=== PATIENT | male | born 1955 | race Two or more races ===

== ENCOUNTER 2019-03-17 00:03 | Day surgery (SDC) | payer MEDICARE, MEDICAID ==
[2015-03-06 16:40] VITALS: Ht 177.8 cm; Wt 57.6 kg
[~2019-03-17] VITALS: Ht 177.8 cm; Wt 57.6 kg
[~2019-03-17 00:03] MED LIST: ALB18R INH; CEP500 PO; CLIN300C99 PO; DIA10 PO; DOC100 PO; DOXY-228 PO; DOXY-260 PO; FLU20 PO; IBU800 PO; IBUP-1618 PO; KET10 PO; LOR5 PO; LOR5/325 PO; MULT-820 PO; NALT50TA29 PO; NO MEDS; NO ROUTINE MEDS.; NO RTN MEDS; PANT40TA65 PO; PER PO; RAN150 PO; SUCR1TAB51 PO; THIA100T55 PO; TRA50 PO; TRAM-420 PO; TRAM100T21 PO; TRAZ-133 PO
[2019-03-17] MEDS ORDERED: fentaNYL CITR 100 MCG/2 ML AMP ONE ×3 (10:15→16:34)
[2019-03-17] MEDS ORDERED: DEXAMETHASONE SOD PHOS 10MG/ML ONE (10:18)
[2019-03-17] MEDS ORDERED: LIDOCAINE MPF 1% 5 ML VIAL ONE (10:18)
[2019-03-17] MEDS ORDERED: KETAMINE HCL 200 MG/20 ML MDV ONE (10:18)
[2019-03-17] MEDS ORDERED: ONDANSETRON 4 MG/2 ML VIAL ONE (10:18)
[2019-03-17] MEDS ORDERED: PROPOFOL EMUL(*) 10MG/ML 20 ML 20 ML ONE (10:18)
[2019-03-17] MEDS ORDERED: SUGAMMADEX SOD 200 MG/2 ML SDV ONE (10:19)
[2019-03-17] MEDS: NORMOSOL R SOLN(*) 1000 ML BAG 1,000 ML IV PRN ×2 (11:08→14:33)
[2019-03-17] MEDS ORDERED: LIDOCAINE/SOD BICARB 8.4% SYR ID ONE (11:30)
[2019-03-17] MEDS ORDERED: FAMOTIDINE 20 MG TAB PO ONE (11:30)
[2019-03-17 11:56] VITALS: BP 113/79
[2019-03-17] MEDS ORDERED: CLINDAMYCIN(*) 600 MG/NS 50 ML 50 ML IVPB ONE (12:00)
[2019-03-17] MEDS ORDERED: LEVOFLOXACIN/D5W 750 MG/150 ML 150 ML IVPB ONE (12:00)
[2019-03-17] MEDS ORDERED: BUPIV/EPI 0.25% 1:200,000 50ML INFIL ONE (13:59)
[2019-03-17] MEDS: MIDAZOLAM 2 MG/2 ML VIAL IVP PRN ×2 (14:42→16:40)
[2019-03-17] MEDS ORDERED: KETOROLAC 30 MG/ML VIAL ONE (16:04)
[2019-03-17] MEDS ORDERED: TRAM-420 PO (16:28)
--- NOTE | 2019-03-17 16:31 | Short(Outpt) Discharge Summary ---
Discharge Summary Reason for Hosp/Final Diag: (1) Hernia, inguinal, right Hospital Course & Plan: pt presented for hernia repair. he tolerated the procedure well. he will be discharged home when criteria met. Discharge Instructions Home Meds Active Scripts Tramadol Hcl (TRAMADOL HCL) 50 Mg Tablet, 50 MG PO Q4H PRN for PAIN, #20 TAB Prov:CASSIA NGO 03/17/19 Tramadol Hcl (TRAMADOL HCL) 50 Mg Tablet, 50 MG PO Q6H for PAIN, #20 TAB Prov:CASSIA NGO 03/12/19 Discontinued Scripts Albuterol Sulfate (VENTOLIN HFA) 18 Gm Inh, 2 PUFF INH Q4-6H PRN for SHORTNESS OF BREATH, #1 INH Prov:MIGUEL RODRIGUEZ 08/31/16 Doxycycline Hyclate (DOXYCYCLINE HYCLATE) 100 Mg Tablet.dr, 100 MG PO BID, #14 TAB Prov:MIGUEL RODRIGUEZ 08/31/16 Ketorolac Tromethamine (KETOROLAC TROMETHAMINE) 10 Mg Tab, 10 MG PO Q6H, #20 TAB Prov:MIGUEL RODRIGUEZ 10/31/15 Diet: Regular Activity: No Heavy Lifting Special Instructions: no lifting more than 15 lbs for 3 wks. ok to shower tomorrow. take stool softener while taking pain meds. f/u dr. azucena ngo 2 wks ([phone]) CASSIA NGO March 17, 2019 16:31
--- NOTE | 2019-03-17 16:36 | Post Operative Progress Note ---
Post Operative Progress Note Date: March 17, 2019 Time: 16:31 Surgeon: dr. azucena ngo #[id number] Industrial Cleaning Technician: none Anesthesia: gen, local Pre-Op Diagnosis: right ing hernia Post-Op Diagnosis: same Findings: right ing hernia Procedure(s): robotic right ing hernia repair with mesh Complications: none Estimated Blood Loss: minimal Date OP Note Dictated: March 17, 2019 Time OP Note Dictated: 16:32 CASSIA NGO March 17, 2019 16:36
[2019-03-17 17:15] VITALS: BP 116/78
[2019-03-17 17:45] VITALS: BP 117/76
[2019-03-17 17:47] VITALS: BP 119/82
[2019-03-17] MEDS ORDERED: traMADol 50 MG TAB ONE (17:48)
--- NOTE | 2019-03-17 18:32 | OPERATIVE REPORT 1 ---
EVENT DATE: March 17, 2019 SURGEON: Mark Dewey MD ANESTHESIOLOGIST: Luke Ortiz MD ANESTHESIA: General and local. SUPERVISOR HARVESTING: None. PREOPERATIVE DIAGNOSIS Right inguinal hernia. POSTOPERATIVE DIAGNOSIS Right inguinal hernia. PROCEDURE PERFORMED Robotic right inguinal hernia repair with mesh. FLUIDS IV crystalloid. ESTIMATED BLOOD LOSS Minimal. SPECIMENS None. COMPLICATIONS None. INDICATIONS This is a 63-year-old male with a right inguinal hernia that is painful. On physical exam, patient has a moderate right inguinal hernia. He is stable. Risks and benefits of the procedure were explained, and consent was signed. DESCRIPTION OF PROCEDURE Patient was taken to the operating room and placed in the supine position. General anesthesia was administered per Anesthesia and the patient prepped and draped in the normal sterile fashion. Local analgesia was injected into the dermis below the left costal margin. Optiview technique was used to easily enter the abdomen. Pneumoperitoneum was achieved. There were some adhesions from previous surgery. These were partially taken down bluntly. After injecting local analgesia and under direct vision, an 8 mm supraumbilical port and an 8 mm right upper quadrant port were placed, and the 5 mm left upper quadrant port was exchanged for an 8 mm port. I used LigaSure to take down the adhesions. The robot was then docked. Scissors were used to create the peritoneal flap. This was taken down to Amilcar ligament and below the level of the iliopubic track. The hernia sac was completely reduced. It was an indirect hernia of moderate size. The inferior epigastric vessels and cord structures were protected throughout the procedure. The 15 x 10 right-sided ProGrip was placed and made to lie flat. It covered the entire myopectineal orifice. The peritoneal flap was reapproximated with the running V-Loc absorbable stitch. Hemostasis was assured. Ports were removed under direct vision. Hemostasis was assured. Pneumoperitoneum was relieved. Final port was removed. All skin incisions were closed with 4-0 Monocryl subcuticular stitches. More local analgesia was injected. Appropriate dressings were applied. Patient tolerated the procedure well, and there were no complications. MTDD
== END 2019-03-17 17:15 | disposition home or self-care (01) ==
LOC: OR 00:03
PROVIDERS: ATTEND Surgery
DX: K40.90 Unilateral inguinal hernia, without obstruction or gangrene, not specified as recurrent (principal)
CPT/HCPCS: 49650; A9270; C1781; J1100; J1885; J1956; J2001; J2250; J2405; J2704; J3010; J3490; S2900

== ENCOUNTER → 2019-05-20 | Outpatient (CLI) | payer MEDICARE, MEDICAID ==
[2015-03-06 16:40] VITALS: BMI 20.1
[~2019-05-20] MED LIST changes: +IOPAMIDOL 76% 100 ML INFUS BTL 100 ML ONE
--- NOTE | 2019-05-20 12:50 | RADIOLOGY IMAGING REPORT ---
FACILITY: [facility] - [place] PATIENT NAME: Tee Winter : 1955 MR: [id number] V: [id number] EXAM DATE: ORDERING PHYSICIAN: CASSIA COX TECHNOLOGIST: Location: [facility] Patient: Tee Winter : 1955 Visit/Account:[id number] Date of Sevice: 05/20/2019 CT ABDOMEN PELVIS W/ CON HISTORY: Bilateral groin pain, history of hernia surgery on left groin TECHNIQUE: Following administration of IV contrast contiguous axial images acquired through the abdom en/pelvis. Coronal and sagittal reformatting also performed.Dose Lowering Technique One of the following dose optimization techniques was utilized in the performance of this exam: Autom ated exposure control; adjustment of the mA and/or kV according to the patient's size; or use of an i terative reconstruction technique. Specific details can be referenced in the facility's radiology C T exam operational policy. CONTRAST: 75 mL Isovue-[id number] COMPARISON: February 17, 2009 FINDINGS: Visualized lung bases: Mild bullous disease and minimal scarring versus atelectasis in the left lung base Hepatobiliary: Negative. Spleen: Negative. Adrenals: Negative. Pancreas: Negative. Kidneys ureters or bladder: The kidneys appear grossly unremarkable. The bladder wall appears mildly thickened although could be related to the decompression of the bladder Genitalia: Negative. GI: The appendix is visualized and does not appear inflamed. There is a moderate amount of fecal ma terial throughout colon which can be seen with constipation Vessels/spaces/nodes: There is a 1.2 x 0.8 cm celiac lymph node and a 1.3 x 0.9 cm periportal lymph node and a 1.4 x 0.8 cm portacaval lymph node. These appear stable when compared to the prior study. There are mild vascular calcifications in the abdominal aorta and branch vessels Bones/soft tissues: There appears to been a right inguinal hernia repair with no evidence of a recur rent hernia. There are mild spondylotic changes lumbar spine Additional findings: None pertinent. IMPRESSION: There appears to been a right inguinal hernia repair with no evidence of a recurrent hernia There is a moderate amount of fecal material seen throughout colon which can be seen with constipatio n The bladder wall appears mildly thickened which could be related to decompression of the bladder. Report Dictated By: Nadya Aly MD at 05/20/2019 12:33 PM Report E-Signed By: Nadya Aly MD at 05/20/2019 12:43 PM WSN:ADRIANA
== END ==
LOC: CT 04-16 00:43
PROVIDERS: ATTEND Surgery
DX: L13.9 Bullous disorder, unspecified (principal); R10.30 Lower abdominal pain, unspecified; R59.9 Enlarged lymph nodes, unspecified
CPT/HCPCS: 36415; 74177; 82565; Q9967